=== PATIENT | female | born 1960 | race African-American/Black ===

== ENCOUNTER 2016-07-01 13:09 | Emergency (ER) | payer MEDICAID | END 2016-07-01 16:05 | disposition home or self-care (01) | LOC: D.ER 13:09 | DX: G43.919 Migraine, unspecified, intractable, without status migrainosus (principal); E86.0 Dehydration; J06.9 Acute upper respiratory infection, unspecified; F17.200 Nicotine dependence, unspecified, uncomplicated ==

== ENCOUNTER 2016-09-03 15:44 | Emergency (ER) | payer MEDICAID | END 2016-09-03 16:55 | disposition home or self-care (01) | LOC: D.ER 15:44 | DX: M54.5 Low back pain (principal); S29.012A Strain of muscle and tendon of back wall of thorax, initial encounter; X58.XXXA Exposure to other specified factors, initial encounter; Y93.89 Activity, other specified; Y92.89 Other specified places as the place of occurrence of the external cause; M19.90 Unspecified osteoarthritis, unspecified site; F17.200 Nicotine dependence, unspecified, uncomplicated ==

== ENCOUNTER 2017-04-19 15:03 | Emergency (ER) | payer MEDICAID | END 2017-04-19 19:15 | disposition home or self-care (01) | LOC: D.ER 15:03 | DX: R51 Headache (principal); J01.90 Acute sinusitis, unspecified; E11.9 Type 2 diabetes mellitus without complications; I10 Essential (primary) hypertension ==

== ENCOUNTER 2017-11-06 15:35 | Emergency (ER) | payer MEDICAID ==
[~2017-11-06] VITALS: Ht 144.8 cm; Wt 64.5 kg
[2017-11-06 15:58] VITALS: Ht 144.8 cm; Wt 64.5 kg
[2017-11-06] MEDS ORDERED: NORVASC5 MG PO (16:01)
[2017-11-06] MEDS ORDERED: ULTRAM50 MG PO (16:02)
[2017-11-06] MEDS ORDERED: VALIUM5 MG PO (16:02)
[2017-11-06] MEDS ORDERED: ZOLOFT100 MG PO (16:02)
[2017-11-06] MEDS ORDERED: MINIPRESS2 MG PO (16:02)
[2017-11-06] MEDS ORDERED: LIPITOR20 MG PO (16:02)
[2017-11-06] MEDS ORDERED: SEROQUEL100 MG PO (16:02)
[2017-11-06] MEDS ORDERED: MINIPRESS1 MG PO (16:02)
[2017-11-06] MEDS ORDERED: NAPROSYN500 MG PO (16:02)
[2017-11-06] MEDS ORDERED: VOLTAREN75 MG PO (18:53)
[2017-11-06] MEDS ORDERED: ROBAXIN-750750 MG PO (18:53)
[2017-11-06 19:34] VITALS: BP 104/59
== END 2017-11-06 19:35 | disposition home or self-care (01) ==
LOC: D.ER 15:35
DX: S16.1XXA Strain of muscle, fascia and tendon at neck level, initial encounter (principal); V43.52XA Car driver injured in collision with other type car in traffic accident, initial encounter; Y93.89 Activity, other specified; Y92.410 Unspecified street and highway as the place of occurrence of the external cause; M62.838 Other muscle spasm; M54.2 Cervicalgia; I10 Essential (primary) hypertension; K21.9 Gastro-esophageal reflux disease without esophagitis; F17.200 Nicotine dependence, unspecified, uncomplicated

== ENCOUNTER → 2018-01-15 08:56 | Outpatient (CLI) | payer MEDICAID ==
[2017-11-06 15:58] VITALS: BMI 30.8
[~2018-01-15 08:56] MED LIST: LIPITOR20 MG PO; MINIPRESS1 MG PO; MINIPRESS2 MG PO; NAPROSYN500 MG PO; NORVASC5 MG PO; ROBAXIN-750750 MG PO; SEROQUEL100 MG PO; ULTRAM50 MG PO; VALIUM5 MG PO; VOLTAREN75 MG PO; ZOLOFT100 MG PO
== END | disposition home or self-care (01) ==
LOC: D.CT 08:56
DX: K86.9 Disease of pancreas, unspecified (principal)

== ENCOUNTER 2018-07-21 18:40 | Emergency (ER) | payer MEDICAID ==
[~2018-07-21] VITALS: Ht 144.8 cm; Wt 71.4 kg
[2018-07-21 18:44] VITALS: BP 117/62; Ht 144.8 cm; Wt 71.4 kg
[2018-07-21] MEDS ORDERED: TYLENOL W/CODEI1 TAB (18:52)
[2018-07-21] MEDS ORDERED: GLUCOPHAGE500 MG PO (18:53)
[2018-07-21 19:25] LABS: BASOPHILS 0.3 % (0-2); EOSINOPHILS 0 % (0-7); HEMATOCRIT 45.3 % (36.0-48.0); HEMOGLOBIN 14.8 g/dL (12-16); IMMATURE GRANULOCYTES 0.2 % (0-5); LYMPHOCYTES 48.5 % (15-50); MCH 29.9 pg (26.0-34.0); MCHC 32.7 g/dL (31.0-37.0); MCV 91.5 fL (80.0-100.0); MEAN PLATELET VOLUME 10.5 fL (7.4-10.4); MONOCYTES 13.3 % (2-11); NEUTROPHILS 37.7 % (40-80); PLATELET COUNT 173 10x3/uL (130-400); RBC 4.95 10x6/uL (4.00-5.40); RDW 14.7 % (11.5-14.5); WBC 6.1 10x3/uL (4.8-10.8)
[2018-07-21 19:47] LABS: ALBUMIN 3.9 g/dL (3.4-5.0); ALKALINE PHOSPHATASE 74 U/L (46-116); ALT (SGPT) 17 U/L (10-68); BILIRUBIN - TOTAL 0.22 mg/dL (0.2-1.3); CALC OSMOLALITY 275 mosm/kg (275-300); CALCIUM 9.3 mg/dL (8.5-10.1); CARBON DIOXIDE 23.8 mmol/L (21.0-32.0); CHLORIDE - SERUM 101 mmol/L (98-107); CREATININE - SERUM 0.8 mg/dL (0.6-1.3); GLUCOSE 110 mg/dL (74-106); PROTEIN - SERUM 8.3 g/dL (6.4-8.2); SODIUM 137 mmol/L (136-145); UREA NITROGEN 14 mg/dL (7-18); eGFR NON AFRICAN AMERICAN 79 mL/min (90-120)
== END 2018-07-21 21:30 | disposition home or self-care (01) ==
LOC: D.ER 18:40
PROVIDERS: Family Medicine
DX: R07.9 Chest pain, unspecified (principal)